=== PATIENT | male | born 1955 | race Hispanic/Latino ===

== ENCOUNTER 2020-09-19 06:16 | Day surgery (SDC) | payer OTHER ==
[2020-09-17 10:58] LABS: Absolute Lymphocytes (CBC) 1.9 K/uL (0.7-4.9); Basophils % 1.3 % (0-1.3); Hematocrit 42.7 % (39.6-49.0); MPV 7.9 fL (7.6-11.3); RBC Red Blood Cell Count 4.75 M/uL (4.33-5.43)
[2020-09-17 11:04] LABS: BUN Blood Urea Nitrogen 12 mg/dL (7-18); Bicarbonate 30 mmol/L (21-32); Glucose Level 89 mg/dL (74-106); Potassium 3.8 mmol/L (3.5-5.1); Sodium Level 142 mmol/L (136-145)
[2020-09-19] MEDS ORDERED: Ringers Lactate 1,000 ML IV ONE (06:51)
[2020-09-19] MEDS ORDERED: LIDOCAINE 1% MPF 5 ML VIAL ONE (07:50)
[2020-09-19] MEDS ORDERED: propofoL 200 MG/20 ML VIAL IV ONE (07:50)
--- NOTE | 2020-09-19 08:42 | ENDO RPT ---
[address], [address] COLONOSCOPY PROCEDURE REPORT EXAM DATE: 09/19/2020 PATIENT NAME: Nahid Godinez MR #: [id number] BIRTHDATE: 1955 ATTENDING: Tim Ferrell M.D. STATUS: outpatient ADMINISTRATIVE REPRESENTATIVE: Maria Del Rosario Coleman and Annette Todd RN INDICATIONS: The patient is a 64 yr old Male here for a colonoscopy due to colon cancer screening PROCEDURE PERFORMED: Colonoscopy MEDICATIONS: Per Anesthesia. ESTIMATED BLOOD LOSS: None CONSENT: The patient understands the risks and benefits of the procedure and understands that these risks include, but are not limited to: sedation, allergic reaction, infection, perforation and/or bleeding. Alternative means of evaluation and treatment include, among others: physical exam, x-rays, and/or surgical intervention. The patient elects to proceed with this endoscopic procedure. DESCRIPTION OF PROCEDURE: During intra-op preparation period all mechanical medical equipment was checked for proper function. Hand hygiene and appropriate measures for infection prevention was taken. Procedure, possible complications, alternatives including, but not limited to possibility of bleeding, perforation, tear, infection, sepsis, need for surgery, need for blood transfusion, were explained to the patient. After the risks, benefits and alternatives of the procedure were thoroughly explained, Informed consent was verified, confirmed and timeout was successfully executed by the treatment team. The patient was placed in the left lateral position. A digital rectal exam was performed and revealed an enlarged prostate. After appropriate level of anesthesia, the scope was passed. The EC-[id number] ([id number]) endoscope was introduced through the anus and advanced to the cecum, which was identified by both the appendix and ileocecal valve. The quality of the prep was good. The instrument was then slowly withdrawn as the colon was fully examined. Scope withdrawal time was 11 minutes. COLON FINDINGS: Moderate diverticulosis was noted throughout the entire examined colon. Retroflexed views revealed no abnormalities. The scope was then completely withdrawn from the patient and the procedure terminated. ADVERSE EVENTS: There were no complications. IMPRESSIONS: Moderate diverticulosis was noted throughout the entire examined colon RECOMMENDATIONS: 1. follow-up: office 1 week(s) 2. increase dietary water 3. no seeds in diet 4. fiber rich diet RECALL: Return in 10 year(s) for Colonoscopy. Tim Ferrell M.D. eSigned: Tim Ferrell M.D. 09/19/2020 8:42 AM cc: Víctor Hall MD CPT CODES: ICD9 CODES: 600.0 Hypertrophy (benign) of prostate PATIENT NAME: Godinez Nahid N. MR#: [id number]
[2020-09-19 08:55] VITALS: TEMP 96.3
[2020-09-19 09:34] VITALS: BP 100/65; O2SAT 100
== END 2020-09-19 09:20 | disposition home or self-care (01) ==
LOC: OR 06:16
PROVIDERS: ATTEND Surgery
PROC: 0DJD8ZZ Inspection of Lower Intestinal Tract, Via Natural or Artificial Opening Endoscopic (ICD-10-PCS; principal; 2020-09-19 07:30)
DX: Z12.11 Encounter for screening for malignant neoplasm of colon (principal); N40.0 Benign prostatic hyperplasia without lower urinary tract symptoms; K57.30 Diverticulosis of large intestine without perforation or abscess without bleeding; Z20.822 Contact with and (suspected) exposure to COVID-19
CPT/HCPCS: 85025; 80048; 36415; 45378; U0003; J2704; J7120

== ENCOUNTER 2024-09-13 14:33 | Emergency (ER) | payer OTHER ==
--- OUTSIDE RECORDS SUMMARY | 2024-09-13 14:36 | XMS REPORT | Clinical Summary ---
Author Name Unknown Organization [facility] Address [address] [place] [address] Care Team Providers Care Ict Business Analyst Name Role Phone Desmond Aviles MD Primary Care Provider [phone] Víctor Hall Santiago DO Unavailable [phone] Allergies No known active allergies Medications multivit-min/foli c/vit K/lycop (ONE-A-DAY MEN'S MULTIVITAMIN ORAL) 09/05/2014 Active omeprazole (PriLOSEC) 20 mg capsule 10/27/1993 Active aspirin 325 mg tablet Take 1 tablet (325 mg) by mouth daily. Active Active Problems Problem Noted Date Diagnosed Date Malignant neoplasm of right kidney, except renal pelvis 11/28/2020 Recovery following surgery 10/08/2020 Renal mass 09/05/2020 Reflux esophagitis Ventral hernia Gastroesophageal reflux disease Encounters Date Type Department Care Team Description 05/25/2024 12:00 PM [facility]NUCKLE [facility]ER Telemedicine Genitourinary Cancer Center [facility], 7th [place] [address] Desmond Aviles MD Malignant neoplasm of right kidney, except renal pelvis (Primary Dx) 05/24/2024 3:00 PM [facility]CKLE [facility]END[facility] Ancillary Procedure [facility]-Ray Outpatient [facility] [address] [place] [address], 7th [place] [address] Desmond Aviles MD Malignant neoplasm of right kidney, except renal pelvis 05/24/2024 9:15 AM KNUCKLE BENDER Ancillary Procedure CT Imaging [address] [place] [address], 7th [place] [address] Desmond Aviles MD Malignant neoplasm of right kidney, except renal pelvis 05/24/2024 8:32 AM KNUCKLE BENDER - 05/24/2024 11:59 PM [facility] Hospital Encounter [facility] [address] [place] [address] Desmond Aviles MD Malignant neoplasm of right kidney, except renal pelvis Discharge Disposition: Home after 09/14/2023 Immunizations Name Administration Dates Next Due Moderna SARS-CoV-2 Vaccination 10/02/2020,2020 Surgical History Surgery Date Site/Laterality Comments GASTRIC FUNDOPLICATION [place] NEPHRECTOMY PARTIAL 10/08/2020 Abdomen/Right Procedure: OPEN PARTIAL NEPHRECTOMY; RIGHT RENAL CYST DECORTICATION; Surgeon: Desmond Aviles MD; Location: MAIN OR; Service: UROLOGY Medical devices from this surgery are in the Medical Devices section. [place] ULTRASONIC GUIDANCE INTRAOPERATIVE 10/08/2020 Flank/Right Procedure: INTROPERATIVE ULTRASOUND - PERFORMED BY SURGEON; Surgeon: Desmond Aviles MD; Location: MAIN OR; Service: UROLOGY Medical devices from this surgery are in the Medical Devices section. Medical History Medical History Date Comments Achalasia Reflux esophagitis Ventral hernia Gastroesophageal reflux disease Malignant neoplasm of right kidney, except renal pelvis 11/28/2020 Family History Relation Name Status Comments Father colon cancer Paternal Aunt liver cancer Paternal Uncle liver cancer Social History Tobacco Use Types Packs/Day Years Used Date Smoking Tobacco: Never Smokeless Tobacco: Never Alcohol Use Standard Drinks/Week Comments Never 0 (1 standard drink = 0.6 oz pur e alcohol) AUDIT-C Answer Date Recorded Q1: How often do you have a drink containing alc ohol? 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 Not on file Not on file Obstetrics History Plan of Treatment Upcoming Encounters Date Type Department Care Team (Late st Contact Info) Description 05/18/2025 11:00 AM [facility]CKLE BENDER Appointment [facility] [address] [place] [address] Ferdinand Calvillo PA [address] [place] [address] [email or web address] 05/18/2025 11:30 AM [facility]CKLE BENDER Ancillary Procedure Diagnostic Center [address] [place] [address], [address]nd [place] [address] Ferdinand Calvillo PA [facility] [place] [address] [email or web address] 05/18/2025 12:15 PM KNUCKLE BENDER Ancillary Procedure CT Imaging [address] [facility], 7th [place] [address] Ferdinand Calvillo PA [address] [place] [address] [email or web address] 05/24/2025 12:00 PM [facility]ER Telemedicine Genitourinary Cancer Center [address] [facility], 7th [place] [address] Desmond Aviles MD [address] [place] [address] [email or web address] Health Maintenance Due Date Last Done Comments Pneumococcal Vaccine: 50+ Ye ars (1 of 1 - PCV) 2004 COVID-19 Vaccine ( - 2023- season) 2024, 09/04/2020 Influenza Vaccine (#1) 2024 Medical Devices Implanted Type Area Grill Prep Cook Device Identifier Shelf Expiration Date Model / Serial / Lot Vistaseal 10ml - [id number] Implanted:Qty: 1 on 10/08/2020 by Desmond Aviles MD at [facility] Implant N/A: Abdomen J&J 12/06/2021 VST10 / [id number] / [id number] Procedures Procedure Name Priority Date/Time Associated Diagnosis Comments XR CHEST 2 VW Routine 05/24/2024 11:50 AM KNUCKLE BENDER Malignant neoplasm of right kidney, except renal pelvis CT ABDOMEN W CONTRAST Routine 05/24/2024 11:31 AM KNUCKLE BENDER Malignant neoplasm of right kidney, except renal pelvis POC CREATININE Routine 05/24/2024 10:43 AM KNUCKLE BENDER MDA CP HEMOGRAM Routine 05/24/2024 10:43 AM KNUCKLE BENDER Malignant neoplasm of right kidney, except renal pelvis LACTATE DEHYDROGENASE Routine 05/24/2024 10:43 AM K[facility]CKLE BENDER Malignant neoplasm of right kidney, except renal pelvis COMPLETE BLOOD COUNT W/ INDICES Routine 05/24/2024 10:43 AM KNUCKLE BENDER Malignant neoplasm of right kidney, except renal pelvis CREATININE Routine 05/24/2024 10:43 AM KNUCKLE BENDER Malignant neoplasm of right kidney, except renal pelvis after 09/14/2023 Results * X-ray Chest 2 Views (05/24/2024 11:50 AM KNUCKLE BENDER) Anatomical Region Laterality Modality Chest Digital Radiogra phy 05/24/2024 11:5 3 AM KNUCKLE BENDER Impressions 05/24/2024 11:56 AM KNUCKLE BENDER No acute cardiopulmonary disease. ACTIONABLE ITEMS/RECOMMENDATIONS*: None. *An Actionable Finding is a finding that may be unrelated to the original reason for imaging but potentially actionable, meaning further investigation may be necessary. The Actionable Findings Vigilance Unit (AFVU) assists medical providers with responding to additional radiologic findings that are unexpected and potentially actionable. Narrative 05/24/2024 11:56 AM KNUCKLE BENDER FULL RESULT: Examination: XR CHEST 2 VW on 05/24/2024 11:50 AM. Clinical History: Malignant neoplasm of right kidney, except renal pelvis Indication: Evaluation of Disease Progression Comparison: 05/19/2023 Technique: Posteroanterior, lateral and dual-energy radiographs of the chest Findings: Support Apparatus: None. Lungs/Pleura/Mediastinum: The trachea is central. The heart is normal in size. No consolidation. No pleural effusion. Hiatal hernia. There are degenerative changes of the spine. Procedure Note Tanna Saeed MD - 05/24/2024 FULL RESULT: Examination: XR CHEST 2 VW on 05/24/2024 11:50 AM. Clinical History: Malignant neoplasm of right kidney, except renalpelvis Indication: Evaluation of Disease Progression Comparison: 05/19/2023 Technique: Posteroanterior, lateral and dual-energy radiographs of thechest Findings: Support Apparatus: None. Lungs/Pleura/Mediastinum: The trachea is central. The heart is normal insize. No consolidation. No pleural effusion. Hiatal hernia. There are degenerative changes of the spine. IMPRESSION: No acute cardiopulmonary disease. ACTIONABLE ITEMS/RECOMMENDATIONS*: None. *An Actionable Finding is a finding that may be unrelated to the originalreason for imaging but potentially actionable, meaning furtherinvestigation may be necessary. The Actionable Findings Vigilance Unit(AFVU) assists medical providers with responding to additional radiologicfindings that are unexpected and potentially actionable. Desmond Aviles MD IMG DIAGNOSTIC IMAGING ORDERABL ES Final Result * CT Abdomen with Contrast (05/24/2024 11:31 AM KNUCKLE BENDER) Anatomical Region Laterality Modality Abdomen Computed Tomogra phy 05/24/2024 11:4 2 AM KNUCKLE BENDER Impressions 05/24/2024 11:59 AM KNUCKLE BENDER 1. Status post partial right-sided nephrectomy with no evidence of residual recurrent disease. 2. Moderate hiatal hernia with thickening of the herniated segment, similar previous. 3. No change in left lower pole renal cyst with some mural enhancement versus a claw of cortical tissue surrounding the cyst. ACTIONABLE ITEMS/RECOMMENDATIONS*: None. *An Actionable Finding is a finding that may be unrelated to the original reason for imaging but potentially actionable, meaning further investigation may be necessary. The Actionable Findings Vigilance Unit (AFVU) assists medical providers with responding to additional radiologic findings that are unexpected and potentially actionable. Narrative 05/24/2024 11:59 AM KNUCKLE BENDER FULL RESULT: Examination: CT ABDOMEN W CONTRAST on 05/24/2024 11:31 AM. Clinical History: Malignant neoplasm of right kidney, except renal pelvis. Indication: RCC s/p right partial nephrectomy. Comparison: 05/19/2023. Technique: CT ABDOMEN W CONTRAST. FINDINGS: Lower Thorax: Atelectatic changes are seen. There is a moderate hiatal hernia with thickening of the herniated segment, similar to previous. Atelectatic changes are seen. Postsurgical changes are seen at the gastroesophageal junction. Hepatobiliary: No suspicious hepatic lesion. No biliary dilatation. Cholelithiasis is noted. Spleen: No splenomegaly. Pancreas: No mass or ductal dilatation. Adrenal Glands: No mass. Kidneys: Bilateral renal cortical and left-sided parapelvic cysts are seen measuring up to 2.6 cm on the left side. Postsurgical changes are seen related to partial right-sided nephrectomy with no evidence of residual or recurrent disease. Again seen is a 1.5 cm cystic lesion in the lower pole of the left kidney with some mural enhancement versus an exophytic claw of cortical tissue surrounding the cyst. Gastrointestinal Tract: No dilated loops of bowel are seen suggest obstruction. Peritoneum/Retroperitoneum: A 5.8 cm fat-containing ventral hernia is seen on series 301, image 62. Other smaller fat-containing ventral hernias are present. There is a surgical clip in the left upper quadrant. Lymph Nodes: No lymphadenopathy. Musculoskeletal: Bone windows demonstrate degenerative changes. Procedure Note Kevin Hanna MD - 05/24/2024 FULL RESULT: Examination: CT ABDOMEN W CONTRAST on 05/24/2024 11:31 AM. Clinical History: Malignant neoplasm of right kidney, except renalpelvis. Indication: RCC s/p right partial nephrectomy. Comparison: 05/19/2023. Technique: CT ABDOMEN W CONTRAST. FINDINGS: Lower Thorax: Atelectatic changes are seen. There is a moderate hiatalhernia with thickening of the herniated segment, similar to previous.Atelectatic changes are seen. Postsurgical changes are seen at thegastroesophageal junction. Hepatobiliary: No suspicious hepatic lesion. No biliary dilatation.Cholelithiasis is noted. Spleen: No splenomegaly. Pancreas: No mass or ductal dilatation. Adrenal Glands: No mass. Kidneys: Bilateral renal cortical and left-sided parapelvic cysts are seenmeasuring up to 2.6 cm on the left side. Postsurgical changes are seenrelated to partial right-sided nephrectomy with no evidence of residual orrecurrent disease. Again seen is a 1.5 cm cystic lesion in the lower poleof the left kidney with some mural enhancement versus an exophytic claw ofcortical tissue surrounding the cyst. Gastrointestinal Tract: No dilated loops of bowel are seen suggestobstruction. Peritoneum/Retroperitoneum: A 5.8 cm fat-containing ventral hernia is seenon series 301, image 62. Other smaller fat-containing ventral hernias arepresent. There is a surgical clip in the left upper quadrant. Lymph Nodes: No lymphadenopathy. Musculoskeletal: Bone windows demonstrate degenerative changes. IMPRESSION: 1. Status post partial right-sided nephrectomy with no evidence ofresidual recurrent disease. 2. Moderate hiatal hernia with thickening of the herniated segment,similar previous. 3. No change in left lower pole renal cyst with some mural enhancementversus a claw of cortical tissue surrounding the cyst. ACTIONABLE ITEMS/RECOMMENDATIONS*: None. *An Actionable Finding is a finding that may be unrelated to the originalreason for imaging but potentially actionable, meaning furtherinvestigation may be necessary. The Actionable Findings Vigilance Unit(AFVU) assists medical providers with responding to additional radiologicfindings that are unexpected and potentially actionable. Desmond Aviles MD IM CT ORDERABLES Final Result * Hemogram (05/24/2024 10:43 AM KNUCKLE BENDER) White Blood Cell 6.5 4.1 - 10.5 K/uL 05/24/2024 11:34 AM [facility] Red Blood Cell 4.63 4.30 - 6.04 M/uL 05/24/2024 11:34 AM KNUCKLE BENDER [facility] Hemoglobin 14.5 13.3 - 17.4 g/dL 05/24/2024 11:34 AM [facility] Hematocrit 42.9 39.5 - 51.8 % 05/24/2024 11:34 AM [facility] Mean Cell Volume 93 82 - 99 fL 05/24/20 11:34 AM [facility] Mean Cell Hemoglobin 31.3 26.6 - 33.2 pg 05/24/2024 11:34 AM [facility] Mean Cell Hemoglobin Concentration 33.8 31.1 - 35.2 g/dL 05/24/2024 11:34 AM [facility] RDW-SD 42.7 37.5 - 49.7 fL 05/24/2024 11:34 AM [facility] Red Cell Diameter Width 12.5 11.6 - 15.5 % 05/24/2024 11:34 AM [facility] Platelet 253 160 - 397 K/uL 05/24/2024 11:34 AM [facility] Mean Platelet Volume 9.4 9.1 - 12.6 fL 05/24/2024 11:34 AM [facility] INRBC 0.0 0.0 - 0.1 /100 WBC 05/24/2024 11:34 AM [facility] Comment: The INRBC (instrument NRBC) value reflects the enumeration of nucleated red blood cells contained in a 200uL sample of whole blood analyzed by the instrument. This value may differ from the NRBC value reported in a manual differential, which is based on a 100 cell differential. Blood Peripheral blood specimen / Unknown Peripheral Catheter / Unknown 05/24/2024 10:43 AM K[facility]CKLE BENDER 05/24/2024 11:23 AM [facility] us Desmond Aviles MD LAB BLOOD ORDERABLES Final Resu lt [facility] [address] [facility] [address] [place] [address] * POC Creatinine (05/24/2024 10:43 AM [facility]) POC Creatinine 0.9 0.6 - 1.3 mg/dL 05/24/2024 10:46 AM [facility] Comment:Medications, especia lly hydroxyurea or supplements, such as ascorbate, can interfere with test results causing a falsely and significantly higher result than expected. If a problem is suspected with a patient's result, a sample should be sent to the laboratory for confirmatory testing. POC eGFR 92 >=60 mL/min/1.7 3 sq. m 05/24/2024 10:46 AM [facility] Comment: The eGFRcr is calculated with the 2020 CKD-EPI creatinine equation using creatinine, patient's age, and sex for adults 18 years of age and older. Other factors, especially muscle mass, may affect accuracy and need to be considered. According to the Kidney Disease: Improving Global Outcomes (KDIGO) CKD Work Group 2012 Clinical Practice Guideline, chronic kidney disease (CKD) is defined as the abnormalities of kidney structure or function, present for more than 3 months, with implications for health. CKD should be classified by cause, GFR category, and albuminuria category. KDIGO guidelines provide the following GFR categories. Stage / Description / GFR mL/min/1.73 m2: G1* / Normal or high / >= 90 G2* / Mildly decreased / 60-89 G3a / Mildly to moderately decreased / 45-59 G3b / Moderately to severely decreased / 30-44 G4 / Severely decreased / 15-29 G5 / Kidney failure / <15 *In the absence of evidence of kidney damage, neither G1 nor G2 fulfill criteria for CKD. Blood 05/24/2024 10:4 3 AM K[facility]CKLE BENDER 05/24/2024 10:46 AM K[facility]CKLE BENDER Narrative [facility] - 05/24/2024 10:46 AM KNUCKLE BENDER Method description: The i-STAT is an analyzer used for in vitro quantification of various analytes in whole blood. The device uses a single disposable cartridge which contains microfabricated sensors, a calibration solution, fluidics system, and a waste chamber. Each test cartridge contains chemically sensitive biosensors on a silicon chip that are configured to perform specific tests. The microfabricated sensors measure analyte concentration by an electrochemical assay. us Desmond Aviles MD POCT ORDERABLES - DEVICE Final Result [facility] Unless otherwise noted, all lab tests performed by: Division of Pathology and Laboratory Medicine [address] [place] [id number] * Lactate dehydrogenase (05/24/2024 10:43 AM KNUCKLE BENDER) LDH 154 135 - 225 U/L 05/24/2024 12:00 PM [facility] Blood Peripheral blood specimen / Unknown Peripheral Catheter / Unknown 05/24/2024 10:43 AM KNUCKLE BENDER 05/24/2024 11:22 AM KNUCKLE BENDER Narrative [facility] - 05/24/2024 12:00 PM KNUCKLE BENDER Results greater than 1651 U/L may not be reliable due to matrix effect with extended dilution as it exceeds the forensic technician's recommended limit. Caution should be exercised when interpreting such values and done in conjunction with clinical context. us Desmond Aviles MD LAB BLOOD ORDERABLES Final Resu lt [facility] [address] [facility] [place] [address] * Creatinine (05/24/2024 10:43 AM [facility]) Creatinine 0.85 0.67 - 1.17 mg/dL 05/24/2024 12:00 PM [facility] eGFR 94 >=60 mL/min/1.7 3 sq. m 05/24/2024 12:00 PM [facility] Comment: The eGFRcr is calculated with the 2020 CKD-EPI creatinine equation using creatinine, patient's age, and sex for adults 18 years of age and older. Other factors, especially muscle mass, may affect accuracy and need to be considered. According to the Kidney Disease: Improving Global Outcomes (KDIGO) CKD Work Group 2012 Clinical Practice Guideline, chronic kidney disease (CKD) is defined as the abnormalities of kidney structure or function, present for more than 3 months, with implications for health. CKD should be classified by cause, GFR category, and albuminuria category. KDIGO guidelines provide the following GFR categories. Stage / Description / GFR mL/min/1.73 m2: G1* / Normal or high / >= 90 G2* / Mildly decreased / 60-89 G3a / Mildly to moderately decreased / 45-59 G3b / Moderately to severely decreased / 30-44 G4 / Severely decreased / 15-29 G5 / Kidney failure / <15 *In the absence of evidence of kidney damage, neither G1 nor G2 fulfill criteria for CKD. Blood Peripheral blood specimen / Unknown Peripheral Catheter / Unknown 05/24/2024 10:43 AM KNUCKLE BENDER 05/24/2024 11:22 AM KNUCKLE BENDER us Desmond Aviles MD LAB BLOOD ORDERABLES Final Resu lt [facility] [address] [facility] [place] [address] after 09/14/2023 Insurance Advance Directives * Full Code (Latest Code Status on File) Date Activated Date Inactivated Comments 10/08/2020 2:43 PM 10/10/2020 5:40 PM Care Teams Ict Business Analyst Relationship Specialty Start Date End Date Desmond Aviles MD [address] [place] [address] [email or web address] PCP - General Urology 08/07/20 Víctor Hall DO [address] [place] [id number] [email or web address] PCP - External Primary Care Provider Family Practice 09/05/20
[2024-09-13 16:21] LABS: Absolute Basophils 0.1 K/uL (0-0.5); Absolute Eosinophils 0.3 K/uL (0-0.5); Absolute Lymphocytes (CBC) 1.6 K/uL (0.7-4.9); Absolute Monocytes 0.7 K/uL (0.1-1.3); Absolute Neutrophil 7.4 K/uL (1.8-8.0); Basophils % 0.7 % (0-1.3); Eosinophils % 3.1 % (0-4.4); Hematocrit 41.3 % (39.6-49.0); Hemoglobin 14.4 g/dL (13.6-17.9); Lymphocytes % 15.6 % (15.3-44.8); MCH 31.5 pg (27.0-35.0); MCHC 34.9 g/dL (32.0-36.0); MCV 90.1 fL (80-100); MPV 7.2 fL (7.6-11.3); Neutrophils % 73.6 % (41.7-73.7); Platelets 343 thou/uL (152-406); RBC Red Blood Cell Count 4.58 M/uL (4.33-5.43); Red Cell Distribution Width 13.3 % (12.1-15.2)
[2024-09-13 16:41] LABS: Anion Gap 6.5 mEq/L (5.0-15.0); Potassium 4.5 mEq/L (3.5-5.1)
--- NOTE | 2024-09-13 17:26 | RAD REPORT ---
EXAMINATION: US Lower Extremity Arterial Bilat CLINICAL INDICATION: Male, 68 years old. [facility] MAIN non-healing wounds;Swelling Bed Name: 24 TECHNIQUE: Arterial duplex ultrasound of the bilateral lower extremities, with real-time, duplex, and spectral flow Doppler evaluation. COMPARISON: No prior exam. FINDINGS: Brachial artery systolic pressure is symmetric bilaterally. Grayscale: Mild to moderate smooth plaque. Right lower extremity: The LAB ANIMAL TECHNOLOGIST through dorsalis pedis arteries are patent, with triphasic waveforms. Left lower extremity: The LAB ANIMAL TECHNOLOGIST through popliteal arteries are patent, with triphasic waveforms. Biphasic waveforms along the left dorsalis pedis and posterior tibial arteries. IMPRESSION: No significant peripheral vascular disease. Biphasic waveforms along the distal left lower extremity arteries may indicate mild disease.
--- NOTE | 2024-09-13 17:26 | RAD REPORT ---
EXAMINATION: US Extrem Venous W Compress Lefty CLINICAL INDICATION: [facility] MAIN SWELLING Bed Name: 23 Y TECHNIQUE: Complete bilateral duplex sonography of the BILATERAL lower extremity veins was performed. The examination included compression for vein patency, color Doppler imaging and flow augmentation in response to distal compression of the distal external iliac, common femoral, femoral, popliteal, t ibial, and great and small saphenous veins. COMPARISON: No prior exam. FINDINGS: Duplex sonography testing of the veins of the BILATERAL lower extremity was performed. Color flow joanna ging shows all veins to be compressible with [id number] color filling. Pulsatile and phasic flow is present within all lower extremity deep and superficial veins examined. IMPRESSION: There is no deep vein or superficial vein thrombosis.
--- NOTE | 2024-09-13 17:38 | RAD REPORT ---
EXAMINATION: US RETROPERITONEUM CLINICAL INDICATION: [facility] MAIN hx of renal cell carcinoma Bed Name: 24 TECHNIQUE: Real-time ultrasonography of the abdomen was performed. COMPARISON: CT abdomen and pelvis of the same day. FINDINGS: RIGHT KIDNEY: Right renal length measurement: 11.5 cm. Normal in echogenicity and size. No calculus, solid mass or hydronephrosis. LEFT KIDNEY: Left renal length measurement: 9.8 cm. Normal in echogenicity and size. No calculus, davis id mass or hydronephrosis. Bilateral exophytic renal cortical cysts, largest in the lateral left renal mid to lower pole cortex measuring up to 2 cm. Parapelvic 2.3 cm cyst on the left as well. URINARY BLADDER: Normal. ADDITIONAL FINDINGS: Prostatomegaly with prostate measuring 5.6 x 4.9 x 4.7 cm. IMPRESSION: No acute abnormalities. Incidentally noted bilateral renal cortical cysts. Prostatomegaly..
--- NOTE | 2024-09-13 18:09 | RAD REPORT ---
EXAMINATION: CT Abdomen Pelvis W Contrast CLINICAL INDICATION: Male, 68 years old. hx of renal cell carcinoma TECHNIQUE: CT abdomen and pelvis was performed, after the administration of IV contrast, as per [facility] protocol. Axial, sagittal and coronal reconstructions were obtained. One or more of the following dose reduction techniques were used: Automated exposure control, adjustment of the mA and k V according to patient size, and iterative reconstruction. Unless otherwise specified, incidental findings do not require dedicated imaging follow-up. COMPARISON: No prior exam. FINDINGS: LOWER CHEST: Patchy groundglass opacities within the left more than right lower lobes. LIVER: Normal in size and contour. No focal lesion. BILIARY SYSTEM: Numerous large cholesterol containing stones, largest measuring 2.6 cm. SPLEEN: Normal size. No focal lesion. PANCREAS: No mass, ductal dilation, or laurent-pancreatic fluid. ADRENALS: Normal; no mass. KIDNEYS: Normal size, with postsurgical changes along the posterior cortex of the right mid to lower pole. Bilateral cortical fluid density cysts in the left parapelvic cyst, largest at the left superior pole measuring 2.8 cm. No recurrent masses. No hydronephrosis. URINARY BLADDER: Unremarkable. GASTROINTESTINAL TRACT: Moderate-sized hiatal hernia with wall thickening and edema along the herniat ed component. No evidence of free air, significant intra-abdominal free fluid, bowel obstruction or abscess. APPENDIX: Normal appendix. LYMPH NODES: No lymphadenopathy. MUSCULOSKELETAL: No acute or suspicious osseous abnormality. ADDITIONAL FINDINGS: Marked prostatomegaly with calcifications. Multiple ventral supraumbilical fat-c ontaining hernia components IMPRESSION: Moderate-sized hiatal hernia with wall thickening and edema along the herniated fundal component, fav ored to be of infectious/inflammatory, rather than ischemic nature. Patchy groundglass opacities within the left more than right lower lobes, suggesting multifocal pneum onitis. Other incidental findings including cholelithiasis and multicompartmental ventral supraumbilical fat- containing hernias.
--- NOTE | 2024-09-13 18:16 | ER ---
Nurse's Notes [facility] Name: Nahid Godinez Jr Age: 68 yrs Sex: Male : 1955 Arrival Date: 09/13/2024 Time: 14:33 Bed 24 Private MD: Diagnosis: Unspecified open wound, left lower leg;Unspecified open wound, right lower leg, initial encounter Presentation: 09/13 14:56 Chief complaint: Patient states: starting last June anytime he wound get a me1 traumatic wound on his legs it would develop into a round wound that takes a long time to heal. RLE has 2 wounds and scars where 2 have recently healed. LLE has wound x1 and L thigh has wound x1. Coronavirus screen: Vaccine status: Patient reports receiving the 2nd dose of the covid vaccine. Ebola Screen: No symptoms or risks identified at this time. Initial Sepsis Screen: Does the patient meet any 2 criteria? No. Patient's initial sepsis screen is negative. Does the patient have a suspected source of infection? No. Patient's initial sepsis screen is negative. Risk Assessment: Do you want to hurt yourself or someone else? Patient reports no desire to harm self or others. Onset of symptoms is unknown. 14:56 Method Of Arrival: Ambulatory [facility] 14:56 Acuity: BRANDI 3 me1 Triage Assessment: 14:59 General: Appears comfortable, well groomed, well developed, well nourished, Behavior is me1 calm, cooperative, appropriate for age, Reports since June anytime he gets a traumatic wound to his legs it turns into a round wound that takes a long time to heal. Pain: Denies pain. EENT: No signs and/or symptoms were reported regarding the EENT system. Neuro: Level of Consciousness is awake, alert, obeys commands, Oriented to person, place, time, situation, Appropriate for age. Cardiovascular: Patient's skin is warm and dry. Respiratory: Airway is patent Respiratory effort is even, unlabored, Respiratory pattern is regular, symmetrical. GI: No signs and/or symptoms were reported involving the gastrointestinal system. : No signs and/or symptoms were reported regarding the genitourinary system. Derm: Wound noted right ikm, left kim and anterior right thigh Wound is round wounds, slight erythema noted to periwound. Musculoskeletal:. Historical: - Allergies: 14:58 No Known Allergies; me1 - PMHx: 14:59 renal cancer; me1 - PSHx: 14:59 partial nephrectomy; me1 - Immunization history:: Adult Immunizations up to date. - Infectious Disease History:: Denies. - Social history:: Smoking status: Patient denies any tobacco usage or history of. - Family history:: not pertinent. - Hospitalizations: : No recent hospitalization is reported. Screenin:02 [facility] ED Fall Risk Assessment (Adult) History of falling in the last 3 months, me1 including since admission No falls in past 3 months (0 pts) Confusion or Disorientation No (0 pts) Intoxicated or Sedated No (0 pts) Impaired Gait No (0 pts) Mobility Assist Device Used No (0 pt) Altered Elimination No (0 pt) Score/Fall Risk Level 0 - 2 = Low Risk Maintained a safe environment, Provided non-skid footwear, Hourly rounding (assess needs \T\ fall precautionary measures) done. Abuse screen: Denies threats or abuse. Nutritional screening: No deficits noted. Tuberculosis screening: No symptoms or risk factors identified. Assessment: 15:02 General: See triage assessment. me1 18:27 Reassessment: No changes from previously documented assessment. Patient and/or family ll1 updated on plan of care and expected duration. Pain level reassessed. Patient is alert, oriented x 3, equal unlabored respirations, skin warm/dry/pink. Vital Signs: 14:56 BP 141 / 90; Pulse 87; Resp 18; Temp 98.4; Pulse Ox 97% ; Weight 79.38 kg; Height 5 ft. me1 8 in. ; Pain 0/10; 15:00 BP 167 / 93; Pulse 74; Resp 16; Pulse Ox 99% ; me1 16:00 BP 140 / 87; Pulse 64; Resp 17; Pulse Ox 99% ; me1 17:00 BP 128 / 81; Pulse 60; Resp 15; Pulse Ox 96% ; me1 18:00 BP 127 / 87; Pulse 62; Resp 16; Temp 98.6; Pulse Ox 100% ; me1 14:56 Body Mass Index 26.61 (79.38 kg, 172.72 cm) me1 14:56 Pain Scale: Adult [facility] ED Course: 14:35 Patient arrived in ED. im 14:36 Stanley Garcia MD is Attending Physician. rn 14:55 Alicia Henderson, RN is Primary Nurse. me1 14:58 Triage completed. me1 14:59 Arm band placed on Patient placed in an exam room. EKG completed in triage. Results me1 shown to MD. 15:02 Patient has correct armband on for positive identification. Bed in low position. Call me1 light in reach. Side rails up X2. Provided Education on: POC. Verbalized understanding.. Client placed on continuous cardiac and pulse oximetry monitoring. NIBP monitoring applied. Pulse ox on. NIBP on. 15:02 No provider procedures requiring assistance completed. me1 16:08 Extrem Venous W Compression Lefty US In Process Unspecified. EDMS 16:08 Lower Extremity Arterial Bilat US In Process Unspecified. EDMS 16:08 CT Abd/Pelvis - IV Contrast Only In Process Unspecified. EDMS 16:09 Rp Exam Complete US In Process Unspecified. EDMS 16:12 Initial lab(s) drawn, by me, sent to lab. Inserted saline lock: 22 gauge in left [facility] antecubital area, using aseptic technique. 16:14 CBC with Diff Sent. me1 16:14 Basic Metabolic Panel Sent. me1 18:27 IV discontinued, intact, bleeding controlled, No redness/swelling at site. Pressure ll1 dressing applied. Administered Medications: No medications were administered Medication: 15:02 VIS not applicable for this client. md1 Outcome: 18:15 Discharge ordered by . rn 18:27 Discharged to home ambulatory, ll1 18:27 Condition: stable 18:27 Discharge instructions given to patient, Instructed on discharge instructions, follow up and referral plans. medication usage, wound care, Demonstrated understanding of instructions, follow-up care, medications, wound care, Prescriptions given X 3, 18:27 Patient left the ED. 1 Signatures: Dispatcher [employer] [facility] Stanley Garcia MD MD rn Lewis, Lynsay, RN RN 1 Stefani Parisi Michelle, RN RN [facility] Corrections: (The following items were deleted from the chart) 14:59 14:58 Home Meds: None; me1 me1 18:16 18:00 BP 127 / 87; Pulse 62bpm; Resp 16bpm; Pulse Ox 100%; me1 me1
--- NOTE | 2024-09-13 18:16 | EDPHYS ---
Physician Documentation [facility] Name: Nahid Godinez Jr Age: 68 yrs Sex: Male : 1955 Arrival Date: 09/13/2024 Time: 14:33 Bed 24 Private MD: ED Physician Stanley Garcia HPI: 09/13 15:23 This 68 yrs old Male presents to ER via Ambulatory with complaints of Wound rn Check - on legs. 15:23 Patient presents to ED for recheck of:. The affected area is on the right leg and left rn leg. Patient reports has been having poor healing wounds bilateral lower extremities, right worse than left for 3 months now. Patient has a history of renal cell carcinoma but has annual checks and states has been cleared of it for years. No known history of other malignancy or skin malignancy. No fever or chills. Patient reports with minimal damage to skin the wounds grow larger into circular lesions that do not heal well. Has taken antibiotics and sometimes helps. Last antibiotic was 1 month ago. Seen by PCP and referred to dermatology. Came today to be evaluated because he is planning on going to [place] for the next 2 months.. Historical: - Allergies: 14:58 No Known Allergies; me1 - PMHx: 14:59 renal cancer; me1 - PSHx: 14:59 partial nephrectomy; me1 - Immunization history:: Adult Immunizations up to date. - Infectious Disease History:: Denies. - Social history:: Smoking status: Patient denies any tobacco usage or history of. - Family history:: not pertinent. - Hospitalizations: : No recent hospitalization is reported. ROS: 15:23 Constitutional: Negative for fever, chills, and weight loss, Cardiovascular: Negative rn for chest pain, palpitations, and edema, Respiratory: Negative for shortness of breath, cough, wheezing, and pleuritic chest pain, Abdomen/GI: Negative for abdominal pain, nausea, vomiting, diarrhea, and constipation, MS/Extremity: Chronic wounds to bilateral lower extremities Neuro: Negative for headache, weakness, numbness, tingling, and seizure, Exam: 15:23 Constitutional: This is a well developed, well nourished patient who is awake, alert, rn and in no acute distress. Cardiovascular: Regular rate and rhythm. No pulse deficits. Respiratory: Speaking full sentences, unlabored. No increased work of breathing, no retractions or nasal flaring. MS/ Extremity: Pulses equal, no cyanosis. Pedal edema with signs of venous stasis and lymphedema bilaterally, with right worse than left. Several superficial ulcerated wounds without obvious signs of infection or drainage on right pretibial region and left distal inner thigh. Small circular wound left pretibial region as well. No active bleeding. Sharp edges and well-demarcated. Patient states all wounds began with local trauma Vital Signs: 14:56 BP 141 / 90; Pulse 87; Resp 18; Temp 98.4; Pulse Ox 97% ; Weight 79.38 kg; Height 5 ft. me1 8 in. ; Pain 0/10; 15:00 BP 167 / 93; Pulse 74; Resp 16; Pulse Ox 99% ; me1 16:00 BP 140 / 87; Pulse 64; Resp 17; Pulse Ox 99% ; me1 17:00 BP 128 / 81; Pulse 60; Resp 15; Pulse Ox 96% ; me1 18:00 BP 127 / 87; Pulse 62; Resp 16; Temp 98.6; Pulse Ox 100% ; me1 14:56 Body Mass Index 26.61 (79.38 kg, 172.72 cm) me1 14:56 Pain Scale: Adult me1 MDM: 14:36 Medical Screening Exam initiated rn 17:58 Differential diagnosis: Arterial insufficiency, lymphedema, varicose veins, DVT, venous rn insufficiency ulcers, skin metastases secondary to renal cell carcinoma, autoimmune inflammation and disorders, vasculitis. Data reviewed: vital signs, nurses notes, lab test result(s), radiologic studies, ultrasound. Counseling: I had a detailed discussion with the patient and/or guardian regarding the historical points, exam findings, and any diagnostic results supporting the discharge/admit diagnosis, lab results, radiology results, the need for outpatient follow up, to return to the emergency department if symptoms worsen or persist or if there are any questions or concerns that arise at home. Special discussion: I discussed with the patient/guardian in detail that at this point there is no indication for admission to the hospital. It is understood, however, that if the symptoms persist or worsen the patient needs to return immediately for re-evaluation. Based on the history and exam findings, there is no indication for further emergent testing or inpatient evaluation. I discussed with the patient/guardian the need to see the privacy specialist for further evaluation of the symptoms. I discussed with the patient/guardian the need to see the primary care provider for further evaluation of the symptoms. ED course: So far imaging of lower extremities have been negative with negative DVT studies as well as arterial studies. Renal ultrasound does not show any masses concerning for recurrence of renal cell carcinoma. CT abdomen pelvis is pending but I do not see any thing acute. Blood work normal. Recommend dermatology and PCP follow-up, dermatology may have to biopsy and rule out any skin malignancies versus autoimmune disorder versus vasculitis. Patient understands this. I have personally reviewed all of the results, including but not limited to blood tests and imaging deemed necessary to safely discharge this patient at this time. All results given to and printed out for patient. I personally went over all the results with the patient and answered all questions. Patient will follow-up with PCP and or specialist as discussed. Return precautions given and understood.. 09/13 14:52 Order name: CBC with Diff; Complete Time: 16:40 rn 09/13 14:52 Order name: Basic Metabolic Panel; Complete Time: 16:42 rn 09/13 14:51 Order name: Extrem Venous W Compression Lefty US; Complete Time: 17:58 rn 09/13 14:51 Order name: Lower Extremity Arterial Bilat US; Complete Time: 17:58 rn 09/13 15:03 Order name: CT Abd/Pelvis - IV Contrast Only; Complete Time: 18:09 rn 09/13 15:03 Order name: Rp Exam Complete US; Complete Time: 17:58 rn 09/13 14:52 Order name: IV Start; Complete Time: 16:14 rn Administered Medications: No medications were administered Disposition Summary: 09/13/24 18:15 Discharge Ordered Notes: Location: Home rn Problem: an ongoing problem rn Symptoms: have improved rn Condition: Stable rn Diagnosis - Unspecified open wound, left lower leg rn - Unspecified open wound, right lower leg, initial encounter rn Followup: rn - With: Private Physician - When: As needed - Reason: Recheck today's complaints, Re-evaluation by your physician Discharge Instructions: - Discharge Summary Sheet rn - Wound Care, Adult rn - Pneumonitis rn Forms: - Medication Reconciliation Form rn - Antibiotic pit furnace melter - Prescription Opioid Use rn - Patient Portal Instructions rn - Leadership Thank You Letter rn Prescriptions: - albuterol sulfate 90 mcg/actuation Inhalation HFA Aerosol Inhaler - inhale 2 puff INHALATION route 4 times per day As needed as needed for rn shortness of breath or wheezing; 1 unit; Refills: 0, Product Selection Permitted - Clindamycin HCl 300 mg Oral Capsule - take 1 capsule ORAL route every 6 hours for 10 days; 40 capsule; Refills: 0, rn Product Selection Permitted - levofloxacin 500 mg Oral tablet - take 1 tablet ORAL route once daily for 7 days; 7 tablet; Refills: 0, Product rn Selection Permitted Signatures: Dispatcher [employer] Stanley Mcpherson MD MD rn Eddleman, Michelle, RN RN me1 Corrections: (The following items were deleted from the chart) 14:59 14:58 Home Meds: None; me1 me1
[2024-09-13 19:03] VITALS: BP 127/87; TEMP 98.6; O2SAT 100
== END 2024-09-13 18:27 | disposition home or self-care (01) ==
LOC: ER 14:33
DX: S81.802A Unspecified open wound, left lower leg, initial encounter (principal); S81.801A Unspecified open wound, right lower leg, initial encounter; Z85.53 Personal history of malignant neoplasm of renal pelvis
CPT/HCPCS: 85025; 80048; 36415; 82565; 74177; 93925; 93970; 76770; Q9967; 99284